=== PATIENT | male | born 1995 | race Caucasian/White ===

== ENCOUNTER 2018-02-16 12:43 | Emergency (ER) | payer OTHER ==
[~2018-02-16] VITALS: Ht 175.3 cm; Wt 68.0 kg
== END 2018-02-16 18:50 | disposition home or self-care (01) ==
LOC: ER 12:43
DX: B34.9 Viral infection, unspecified (principal); K52.89 Other specified noninfective gastroenteritis and colitis

== ENCOUNTER 2018-05-15 20:34 | Emergency (ER) | payer OTHER ==
[~2018-05-15] VITALS: Ht 172.7 cm; Wt 68.0 kg
== END 2018-05-16 03:08 | disposition home or self-care (01) ==
LOC: ER 20:34
DX: K52.9 Noninfective gastroenteritis and colitis, unspecified (principal); R11.11 Vomiting without nausea; E86.0 Dehydration